=== PATIENT | male | born 1965 | race Caucasian/White ===

== ENCOUNTER 2016-06-29 19:36 | Emergency (ER) | payer SELFPAY ==
--- NOTE | 2016-06-29 22:13 | UC ---
Ear Complaint HPI - HPI Summary HPI Summary: The patient comes in today for: 1. Poor hearing and pressure in the right ear, and poor hearing of the left. Onset: 1 week ago. Palliative/provocative: When he sleeps on the right ear, it makes it worse. Quality: Pressure. Region: EArs. Severity: 10 Time: Constant. Associated symptoms: He was fine until he had a cold. This problem has gotten worse after the cold progressed. Rhinitis: no discharge. 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 - Allergies/Home Medications Allergies/Adverse Reactions: Allergies Allergy/AdvReac Type Severity Reaction Status Date / Time GUMARO Inhibitors Allergy Anaphylatic Verified 06/29/16 20:27 Shock Metaxalone [From Skelaxin] Allergy Hallucinati Verified 06/29/16 20:27 ons Home Medications: Home Medications Hydrochlorothiazide TAB* [Hydrodiuril TAB*] 25 mg PO DAILY 06/29/16 [History Confirmed 06/29/16] PMH/Surg Hx/FS Hx/Imm Hx Previously Healthy: No Endocrine History Of: Denies: Diabetes, Thyroid Disease, Hyperthyroidism, Hypothyroidism, Dyslipidemia Cardiovascular History Of: Reports: Cardiac Disorders - bradycardia, Hypertension Denies: Pacemaker/ICD, Myocardial Infarction, Congestive Heart Failure, Atrial Fibrillation, Deep Vein Thrombosis, Bleeding Disorders Respiratory History Of: Denies: COPD, Asthma, Bronchitis, Pneumonia, Pulmonary Embolism GI/ History Of: Denies: Gastroesophageal Reflux, Ulcer, Gastrointestinal Bleed, Gall Bladder Disease, Kidney Stones, Diverticulitis, Renal Disease, Urosepsis Neurological History Of: Denies: TIA, CVA, Dementia, Seizures, Migraine Psychological History Of: Reports: Post Traumatic Stress Disorder Denies: Anxiety, Depression, Bipolar Disorder, Schizophrenia Cancer History Of: Denies: Lung Cancer, Colorectal Cancer, Breast Cancer, Prostate Cancer, Cervical Cancer Other History Of: Negative For: HIV, Hepatitis B, Hepatitis C, Anticoagulant Therapy - Surgical History Surgical History: Yes Surgery Procedure, Year, and Place: Gastric bypass. roator cuff x2. T&A. Lower back - Family History Known Family History: Positive: Cardiac Disease, Hypertension - Social History Occupation: Unemployed Alcohol Use: Rare Substance Use Type: None Smoking Status (MU): Never Smoked Tobacco Review of Systems Constitutional: Negative Skin: Negative ENT: Ear Ache Respiratory: Negative Cardiovascular: Negative Gastrointestinal: Negative Genitourinary: Negative All Other Systems Reviewed And Are Negative: Yes Physical Exam Triage Information Reviewed: Yes Appearance: Well-Appearing, No Pain Distress, Well-Nourished Vital Signs: Initial Vital Signs Temp 98.4 F 06/29/16 20:19 Pulse 67 06/29/16 20:19 Resp 15 06/29/16 20:19 BP 142/78 06/29/16 20:19 Pulse Ox 98 06/29/16 20:19 Vital Signs Reviewed: Yes Eyes: Positive: Conjunctiva Clear. Negative: Discharge ENT: Positive: Other: - Pinna traction elicited discomfort bilaterally. TM malave and translucent bilaterally. There is no marked canal erythema or edema bilaterally.. Negative: Hearing grossly normal - He is more hard of hearing., Pharyngeal erythema, Nasal congestion, Nasal drainage, TM bulging, TM dull, TM red, Tonsillar swelling, Tonsillar exudate Dental: Negative: Gross Decay/Caries @, Dental Fracture @ Neck: Positive: Supple, Nontender, No Lymphadenopathy. Negative: Nuchal Rigidity Respiratory: Positive: Chest non-tender, Lungs clear, No respiratory distress, No accessory muscle use. Negative: Crackles, Wheezing Cardiovascular: Positive: RRR, No Murmur Abdomen Description: Positive: Nontender, No Organomegaly, Soft. Negative: Distended, Guarding Musculoskeletal: Positive: Strength Intact, ROM Intact, No Edema Neurological: Positive: Alert, Muscle Tone Normal Psychological: Positive: Age Appropriate Behavior, Consolable Skin: Negative: rashes, breakdown Ear Complaint Course/Dx - Differential Dx/Diagnosis Provider Diagnoses: otitis external bilaterally. Discharge - Discharge Plan Condition: Stable Disposition: HOME Patient Education Materials: Otitis Externa (ED) Referrals: No Primary Care Phys,NOPCP [Primary Care Provider] - 1 Week (Please see your primary care provider in about a week. If you don't have a primary care provider, please reference the included sheet of local provider. If you get worse, please be seen sooner.)
[2016-06-29] MEDS ORDERED: Neomyc/Polym/HC 1% OTIC SUSP* **OTIC BOTH EARS ONE ×2 (22:17→22:19)
== END 2016-06-29 22:40 | disposition home or self-care (01) ==
LOC: UCCORT 19:36
DX: H60.93 Unspecified otitis externa, bilateral (principal); I10 Essential (primary) hypertension; R00.1 Bradycardia, unspecified; Z98.84 Bariatric surgery status
CPT/HCPCS: 99202; A9270-GY; G0463

== ENCOUNTER 2016-09-28 12:36 | Emergency (ER) | payer SELFPAY ==
--- NOTE | 2016-09-28 12:45 | ED ---
Headache - HPI Summary HPI Summary: 50 year old male presents with complains of bilateral eye pain and back spasm. - History Of Current Complaint Stated Complaint: BILATERAL EYE COMPLAINT Time Seen by Provider: 09/28/16 12:39 - Allergies/Home Medications Allergies/Adverse Reactions: Allergies Allergy/AdvReac Type Severity Reaction Status Date / Time GUMARO Inhibitors Allergy Anaphylatic Verified 09/28/16 13:09 Shock Metaxalone [From Skelaxin] Allergy Hallucinati Verified 09/28/16 13:09 ons bee Allergy Anaphylatic Uncoded 09/28/16 13:09 Shock Home Medications: Home Medications Multivitamins/Minerals TAB* [Thera M Plus TAB*] 1 tab PO DAILY 09/28/16 [ History Confirmed 09/28/16] Pantoprazole Sodium [Protonix] 20 mg PO DAILY 09/28/16 [History Confirmed ] amLODIPine TAB* [Norvasc 5 mg TAB*] 5 mg PO DAILY 09/28/16 [History Confirmed ] PMH/Surg Hx/FS Hx/Imm Hx Endocrine/Hematology History: Denies: Hx Anticoagulant Therapy, Hx Diabetes, Hx Thyroid Disease Cardiovascular History: Reports: Hx Hypertension Denies: Hx Congestive Heart Failure, Hx Deep Vein Thrombosis, Hx Myocardial Infarction, Hx Pacemaker/ICD Respiratory History: Denies: Hx Asthma, Hx Chronic Obstructive Pulmonary Disease (COPD), Hx Lung Cancer, Hx Pneumonia, Hx Pulmonary Embolism GI History: Denies: Hx Gall Bladder Disease, Hx Gastrointestinal Bleed, Hx Ulcer, Hx Urosepsis History: Denies: Hx Kidney Stones, Hx Renal Disease Neurological History: Denies: Hx Dementia, Hx Migraine, Hx Seizures, Hx Transient Ischemic Attacks (TIA) Psychiatric History: Denies: Hx Anxiety, Hx Depression, Hx Schizophrenia, Hx Bipolar Disorder - Surgical History Surgery Procedure, Year, and Place: Gastric bypass. roator cuff x2. T&A. Lower back - Family History Known Family History: Positive: Cardiac Disease, Hypertension - Social History Alcohol Use: Rare Substance Use Type: Reports: None Smoking Status (MU): Never Smoked Tobacco Review of Systems Positive: Drainage, Erythema Positive: Arthralgia, Myalgia, Decreased ROM, Other - lower bilateral lumbar spasm All Other Systems Reviewed And Are Negative: Yes Physical Exam Triage Information Reviewed: Yes Eyes: Positive: Conjunctiva Inflammed, Discharge Musculoskeletal: Positive: Other - bilateral lumbar spasm Headache Course/Dx - Diagnoses Provider Diagnoses: Conjunctivitis, Back muscle spasm Discharge - Discharge Plan Condition: Stable Disposition: HOME Prescriptions: Meloxicam [Mobic] 7.5 mg PO BID #30 tab Methocarbamol [Robaxin-750 MG TAB] 750 mg PO Q8H PRN #45 tab PRN Reason: Spasms - Back Naphazoline W/ Pheniramine [Opcon-A] 1 kaveh OP TID PRN #1 bottle PRN Reason: Allergy Symptoms Polymyx/Trimethoprim OPTH* [Polytrim OPHTH*] 1 drop RIGHT EYE Q6H #1 btl Tizanidine HCl [Zanaflex] 4 mg PO QID #30 tab Patient Education Materials: Chemical [employer] [place] (ED), Low Back Strain (ED), Conjunctivitis (ED) Referrals: No Primary Care Phys,NOPCP [Medical Doctor] -
[2016-09-28 13:14] VITALS: BP 158/93
== END 2016-09-28 13:28 | disposition home or self-care (01) ==
LOC: UCCORT 12:36
DX: H10.9 Unspecified conjunctivitis (principal); M62.830 Muscle spasm of back; I10 Essential (primary) hypertension
CPT/HCPCS: 99212; G0463